=== PATIENT | female | born 1985 | race Native Hawaiian/Other Pacific Islander ===

== ENCOUNTER 2018-08-05 07:25 | Inpatient (IN) | payer MEDICAID, OTHER ==
[2015-07-12 13:36] VITALS: BMI 34.0
[2018-08-05] MEDS ORDERED: Lactated Ringer's 1,000 ML IV ONE (08:50)
[2018-08-05] MEDS ORDERED: Sodium Citrate/Citric Acid 15 ml Sol PO ONE (08:50)
[2018-08-05] MEDS ORDERED: cefOXitin IV 2 gm in Dextrose 2 GM/50 ML BAG IVPB ONE ×2 (08:50→10:33)
--- NOTE | 2018-08-05 09:01 | CP.PCM.HP ---
History of Present Illness - History of Present Illness History of Present Illness: Hank Burciaga DO, PGY-1 Dictating Machine Typist Admission History and Physical for Dr. Sandoval Ms. Martínez is a 33 year old female who presents for scheduled caesarean delivery. She states she is having mild abdominal pain with intermittent contractions. She admits to a hx of prior c/s which was completed due to prolonged labor. She states she has had an uneventful and followed up with [facility] regularly for pre-adebayo care. She states she has been taking a PNV throughout . She offers no additional complaints at this time and denies fever/chills, CP, SOB, cough, nausea/vomiting, [place], changes in vision, or changes in urination. PMH: none PSH: prior c/s x 1 Allergies: NKA Hospitalizations: c/s x 1 Home meds: PNV only Fam Hx: reviewed, non-contributory Soc Hx: denies tobacco, alcohol, or drug use including through . She is monogamous with her and has a good support system at home. Present on Admission - Present on Admission Any Indicators Present on Admission: No History of DVT/PE: No History of Uncontrolled Diabetes: No Urinary Catheter: No Decubitus Ulcer Present: No Review of Systems - Constitutional Constitutional: absent: Chills, Fever - EENT Eyes: absent: Change in Vision - Cardiovascular Cardiovascular: absent: Chest Pain, Diaphoresis, Dyspnea, Lightheadedness, Palpitations - Respiratory Respiratory: absent: Cough, Dyspnea - Gastrointestinal Gastrointestinal: absent: Abdominal Pain, Nausea, Vomiting - Genitourinary Genitourinary: absent: Change in Urinary Stream - Reproductive: Female Reproductive:Female: Other () - Menstruation Menstruation: Other () - Musculoskeletal Musculoskeletal: absent: Abnormal Gait, Atrophy Past Patient History - Past Social History Smoking Status: Never Smoked - PSYCHIATRIC Hx Substance Use: No - SURGICAL HISTORY Hx Surgeries: No Meds Allergies/Adverse Reactions: Allergies Allergy/AdvReac Type Severity Reaction Status Date / Time No Known Allergies Allergy Verified 07/09/15 09:40 Physical Exam - Constitutional Appears: Non-toxic, No Acute Distress - Head Exam Head Exam: ATRAUMATIC, NORMOCEPHALIC - Eye Exam Eye Exam: EOMI, Normal appearance, PERRL - ENT Exam ENT Exam: Mucous Membranes Moist - Neck Exam Neck exam: Positive for: Full Rom, Normal Inspection - Respiratory Exam Respiratory Exam: Clear to Auscultation Bilateral, NORMAL BREATHING PATTERN. absent: Rales, Rhonchi, Wheezes - Cardiovascular Exam Cardiovascular Exam: REGULAR RHYTHM, RRR, +S1, +S2. absent: Diastolic murmur, Gallop, Rubs, Systolic Murmur - GI/Abdominal Exam Additional comments: changes c/w full term - Extremities Exam Extremities exam: Positive for: normal inspection. Negative for: pedal edema - Back Exam Back exam: FULL ROM, NORMAL INSPECTION - Neurological Exam Neurological exam: Alert, Oriented x3 - Psychiatric Exam Psychiatric exam: Normal Affect, Normal Mood - Skin Skin Exam: Dry, Intact, Warm Assessment & Plan - Assessment and Plan (Free Text) Assessment: 33 yo F with no significant PMH is admitted for elective caesarean delivery. Plan: Caesarean section planned for today at 1000 Pre-operative cefoxitin 2 mg IVPB x 1 dose Pre-operative boluses of LR 1 L x 2 Routine pre-operative pre-adebayo labs NPO until after c/s Pepcid 20 mg IVPB x 1 Sodium citrate 30 mg soln x 1 Case and plan reviewed and discussed with my attending Dr. Jaime Burciaga, DO IM Resident PGY-1
[2018-08-05] MEDS ORDERED: Sodium Citrate/Citric Acid 15 ml Sol ONE ×2 (10:34→10:57)
[2018-08-05] MEDS ORDERED: Oxytocin 20 units in LR 2,000 ML IV ONE (10:34)
[2018-08-05 11:07] LABS: SQUAMOUS EPITHIAL 37 /hpf (0-5); URINE BACTERIA FEW (<OCC); URINE BILIRUBIN NEGATIVE (NEGATIVE); URINE BLOOD NEGATIVE (NEGATIVE); URINE CLARITY Hazy (Clear); URINE COLOR Amber (YELLOW); URINE GLUCOSE (UA) NORMAL (Normal); URINE LEUKOCYTE ESTERASE 3+ Leu/uL (Negative); URINE PROTEIN 1+ mg/dL (NEGATIVE); URINE UROBILINOGEN NORMAL mg/dL (0.2-1.0)
[2018-08-05 11:10] LABS: HEMOGLOBIN 13.1 g/dL (11.0-16.0); MONO # 0.4 K/uL (0.0-0.8); NRBC % 0.1 % (0.0-2.0)
[2018-08-05 11:13] LABS: ALB/GLOB RATIO 1.1 (1.0-2.1); ALBUMIN 3.5 g/dL (3.5-5.0); ALT/SGPT 28 U/L (9-52); AST/SGOT 24 U/L (14-36); BLOOD UREA NITROGEN 8 mg/dL (7-17); CALCIUM 8.7 mg/dl (8.6-10.4); GFR NON-AFRICAN AMERICAN > 60
[2018-08-05 11:15] LABS: BASO % 0.6 % (0.0-2.0); EOS # 0.3 K/uL (0.0-0.7); EOS % 3.8 % (0.0-4.0); LYMPH # 1.7 K/uL (1.0-4.3); LYMPH % 23.4 % (20.0-40.0); MEAN CORPUSCULAR HEMOGLOBIN 29.9 pg (27.0-31.0); MEAN CORPUSCULAR HGB CONC 33.3 g/dL (33.0-37.0); MEAN PLATELET VOLUME 8.6 fL (7.2-11.7); MONO % 5.2 % (0.0-10.0); NEUT # 4.7 K/uL (1.8-7.0); RBC 4.37 Mil/uL (3.80-5.20); RED CELL DISTRIBUTION WIDTH 16.8 % (11.5-14.5); WHITE BLOOD COUNT 7.1 K/uL (4.8-10.8)
[2018-08-05] MEDS ORDERED: Bupivacaine HCl 15 mg/2 ml Spinal Inj ONE (11:41)
[2018-08-05] MEDS ORDERED: Morphine 1 mg/ml preservative-free Inj(Duramorph) ONE (11:42)
[2018-08-05] MEDS ORDERED: EPINEPHrine 1 mg/ml (1:1000) Inj ONE (12:33)
[2018-08-05] MEDS ORDERED: Oxytocin 10 Units/ml Inj ONE (13:31)
[2018-08-05] MEDS ORDERED: DiphenhydrAMINE 50 mg/ml Inj IVP PRN (13:49)
[2018-08-05] MEDS ORDERED: Naloxone 0.4 mg/ml Inj (Adult) IVP PRN (13:49)
--- NOTE | 2018-08-05 15:30 | OBDS ---
DELIVERY PERSONNEL Delivery Doctor: Migdalia Sandoval DO Scrub Nurse: Mely Killian Metallurgical Engineering Technician: Oxana Campbell RN Anesthesiologist: Chad Kim MD Resident: Lore Weller MATERNAL INFORMATION Delivery Anesthesia: Spinal Medications in Delivery: oxytocin Placenta Cultured: Yes Maternal Complications: None RN Comments: Delivery of a life Baby Girl 9, 9 Provider Comments: Elective Repeat LTC C/S with delivery of a viable female from [facility]. Apgars 9_9 at 1 _ 5 mins and BW 7 lbs and 15oz. [facility] also performed Cord blood and cord pH obtained and sent, as well as Placenta sent to Pathology. EBl 700 mls Pt tolerated the procedure well and remained in LDR in S_S condition LABOR SUMMARY EDC: 08/11/2018 00:00 No. Babies in Womb: 0 LABOR INFORMATION Reason for Induction: Not Applicable Group B Beta Strep: Negative Steroids Given: None Reason Steroids Not Administered: Not Applicable STAGES OF LABOR Stage 3 hrs: 0 Stage 3 min: 1 VAGINAL DELIVERY Episiotomy: None Laceration Extension: N/A Laceration Type: None Other Laceration: n/a Laceration Repair: Not Applicable Initial Vag Sponge Count: 25 Initial Vag Sharps Count: 11 CSECTION DELIVERY Primary Indication: Repeat Elective CSection Urgency: Elective CSection Incidence: Repeat Labor: N/A Elective: N/A CSection Incision: Lower Uterine Transverse BABY A INFORMATION Infant Delivery Date/Time: 08/05/2018 12:15 Method of Delivery: Born in Route : No : N/A Forceps: N/A Vacuum Extraction: Successful Shoulder Dystocia : No ASSISTED DELIVERY BABY A Indication for Assisted Delivery: Head delivery Catheter Prior to Procedure: Yes Station Vacuum/Forcep Apply: head Vacuum Number of Pulls: 1 Vacuum Number of PopOffs: 0 Vacuum Maximum Pressure Obtained: 40 Vacuum Vest Backer: Rickey Surgical Type of Forceps: none SHOULDER DYSTOCIA BABY A Infant Delivery Date/Time: 08/05/2018 12:15 PRESENTATION/POSITION BABY A Presentation: Cephalic Cephalic Presentation: Vertex Vertex Position: Left Occipital Posterior PLACENTA INFORMATION BABY A Placenta Delivery Time : 08/05/2018 12:16 Placenta Method of Delivery: Manual Removal Placenta Status: Delivered SCORES BABY A Heart Rate 1 min: >100 bpm Resp Effort 1 min: Good Cry Reflex Irritability 1 min: Cough or Sneeze or Pulls Away Muscle Tone 1 min: Active Motion Color 1 min: Body [place], Extremities Blue SCORE 1 MIN: 9 Heart Rate 5 min: >100 bpm Resp Effort 5 min: Good Cry Reflex Irritability 5 min: Cough or Sneeze or Pulls Away Muscle Tone 5 min: Active Motion Color 5 min: Body [place], Extremities Blue SCORE 5 MIN: 9 INFANT INFORMATION BABY A Gestational Age at Delivery: 39.1 Gestational Status: Term Outcome : Liveborn Infant Condition : Stable Infant Sex: Female IDENTIFICATION/MEDS BABY A ID Band Number: [id number] Sensor Applied: Yes Sensor Number: [id number] WEIGHT/LENGTH BABY A Birthweight (gms): 3610 Infant Weight (lb): 7 Infant Weight (oz): 15 Length Inches: 19.50 Infant Length cms: 49.5 CORD INFORMATION BABY A No. Cord Vessels: 3 Nuchal Cord : N/A Cord Blood Taken: Yes ASSESSMENT BABY A Complications: None Physical Findings at Delivery: Within Normal Limits Infant Respirations: Appears Normal Superintendent Greens/ALS Called : No Infant Care By: bella Transferred To: [facility]
[2018-08-05] MEDS ORDERED: Sodium Chloride 0.9% 500 ML IV ONE (16:46)
--- NOTE | 2018-08-06 07:08 | OBHP ---
Datetime: 08/05/2018 10:13 IP Adm Impression: Term, intrauterine IP Admit Plan: Admit to unit; Initiate Section protocol Admit Comment, IP Provider: Patient is a 33 year old at 39w1d PRISCILA 08/11/18 who presents for scheduled repeat . Patient is doing well, reports having contractions q15min. Endorses +FM, denies VB, LOF. Patient follows with [facility] for care. Denies headaches, dizziness, cp, palpi tations, sob, urinary symptoms, changes in bowel habits. 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 Hx: LMP 11/04/17 Denies hx of fibroids, ovarian cysts, STDs Allergies: NKDA Medication: PNV, Iron Medical History: Denies Surgical History: C/S x 1 Social History: Denies alcohol, tobacco, drug use; She is monogamous with her and has a go od support system at home Family History: Denies PE: See above A/P: Patient is a 33 year old at 39w1d who presents for elective repeat C/S -Stable afebrile -NST Reactive -Admission labs: CBC, CMP, T+S, UA, RPR, HIV -Cefoxitin 2gm, Bicitra and Pepcid preoperatively -Diet: NPO -Anesthesia notified -Plan discussed with Dr Sandoval FHR - Baseline A Provider: 140 Contraction Comments Provider: q6-7min Comments, ACOG Physical Exam: VSS Gen: AAOx3 Abd: Soft, gravid Ext: No clubbing, cyanosis, edema; no calf tenderness EFM: 140, moderate variability, +accels, no decels TOCO: Q6-7min IP Hx Assessment: The History has been Reviewed and is Current EGA AdmitDate IP: 39.1 Vital Signs Provider: Reviewed; Within Normal Limits IP Chief Complaint: Scheduled Section NICHD Variability Prov Fetus A: Moderate 6-25bpm NICHD Accel Fetus A IP Provider: [id number] NICHD Decel Fetus A IP Provider: None
--- NOTE | 2018-08-06 07:11 | OBADHP ---
Datetime: 08/05/2018 10:13 Admit Comment, IP Provider: Patient is a 33 year old at 39w1d PRISCILA 08/11/18 who presents for scheduled repeat . Patient is doing well, reports having contractions q15min. Endorses +FM, denies VB, LOF. Patient follows with [facility] for care. Denies headaches, dizziness, cp, palpi tations, sob, urinary symptoms, changes in bowel habits. History: denies OB Hx: 1. 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 Hx: LMP 11/04/17 Denies hx of fibroids, ovarian cysts, STDs Allergies: NKDA Medication: PNV, Iron Medical History: Denies Surgical History: C/S x 1 Social History: Denies alcohol, tobacco, drug use; She is monogamous with her and has a go od support system at home Family History: Denies PE: See above A/P: Patient is a 33 year old at 39w1d who presents for elective repeat C/S -Stable afebrile -NST Reactive -Admit and prep for C/S -Admission labs: CBC, CMP, T+S, UA, RPR, HIV -Cefoxitin 2gm, Bicitra and Pepcid preoperatively -Diet: NPO -Anesthesia notified -Plan discussed with Dr Sandoval FHR - Baseline A Provider: 140 Contraction Comments Provider: q6-7min Comments, ACOG Physical Exam: VSS Gen: AAOx3 Abd: Soft, gravid Ext: No clubbing, cyanosis, edema; no calf tenderness EFM: 140, moderate variability, +accels, no decels TOCO: Q6-7min IP Hx Assessment: The History has been Reviewed and is Current Vital Signs Provider: Reviewed; Within Normal Limits IP Chief Complaint: Scheduled Section NICHD Variability Prov Fetus A: Moderate 6-25bpm NICHD Accel Fetus A IP Provider: [id number] NICHD Decel Fetus A IP Provider: None EGA AdmitDate IP: 39.1 IP Adm Impression: Term, intrauterine IP Admit Plan: Admit to unit; Initiate Section protocol
[2018-08-06 07:52] LABS: HEMOGLOBIN 11.6 g/dL (11.0-16.0); MEAN CELL VOLUME 89.2 fL (81.0-99.0); MEAN CORPUSCULAR HEMOGLOBIN 30.3 pg (27.0-31.0); MEAN PLATELET VOLUME 8.8 fL (7.2-11.7); RBC 3.83 Mil/uL (3.80-5.20); RED CELL DISTRIBUTION WIDTH 17.1 % (11.5-14.5)
[2018-08-06 07:53] LABS: WHITE BLOOD COUNT 10.8 K/uL (4.8-10.8)
[2018-08-06] MEDS ORDERED: Enoxaparin 40 mg Syringe SC SCH (10:00)
[2018-08-06] MEDS: Prenatal Multivit/Folic Acid/Iron Tab PO SCH (10:25)
--- NOTE | 2018-08-06 16:26 | OBPPN ---
Datetime: 08/06/2018 12:02 PP Pain Prov: Within normal limits PP Nausea Prov: Denies PP Flatus Prov: No PP BM Prov: No PP Breasts Prov: Not Done PP Heart Prov: Normal PP Lungs Prov: Normal PP Abdomen/Uterus Prov: Normal PP Lochia Prov: Normal PP Vulva/Perineum Prov: Normal PP CVA Tenderness Prov: Normal PP Extremities Prov: Normal PP C/S Incision Prov: Normal PP Progress Prov: Normal PP Comments Phys Exam Prov: Fundus firm and below umbilicus Dressing clean, dry and intact PP Impression Prov: Normal progression PP Plan Prov: Continue present management PP Progress Note Prov: Pt seen and examined POD # 1 No c/o's and doing well Eating and ambulating in room AB+ PP H_H 11.6/34.1 Stable and Satisfactory Condition and Recovery Advance care Encourage po water intake and IP PP Procedures: None Vital Signs Provider PP: Reviewed; Within Normal Limits
[2018-08-06] MEDS: Oxycodone/Acetaminophen 5/325 mg Tab PO PRN (21:22)
[2018-08-07] MEDS: Oxycodone/Acetaminophen 5/325 mg Tab PO PRN ×4 (03:15→22:52)
[2018-08-07] MEDS: Prenatal Multivit/Folic Acid/Iron Tab PO SCH (09:42)
[2018-08-07] MEDS ORDERED: Aluminum Hydroxide/Magnesium Hydroxide Susp (30 mL) PO PRN (10:09)
[2018-08-07] MEDS ORDERED: POLYETHYLENE GLYCOL 3350 17 GM/Dose PACKET PO ONE (10:10)
[2018-08-07] MEDS ORDERED: Simethicone 80 mg Chewtab PO PRN (10:46)
[2018-08-07] MEDS ORDERED: Magnesium Hydroxide Susp 30 ml UD PO ONE ×3 (11:00→14:00)
[2018-08-07] MEDS: Enoxaparin 60 mg Syringe SC SCH (12:05)
[2018-08-07] MEDS: Simethicone 80 mg Chewtab PO SCH ×3 (13:53→22:49)
--- NOTE | 2018-08-07 18:09 | OBPPN ---
Datetime: 08/07/2018 11:31 PP Pain Prov: Within normal limits PP Nausea Prov: Denies PP Flatus Prov: Yes PP BM Prov: No PP Breasts Prov: Not Done PP Heart Prov: Normal PP Lungs Prov: Normal PP Abdomen/Uterus Prov: Normal PP Lochia Prov: Normal PP Vulva/Perineum Prov: Not Done PP CVA Tenderness Prov: Normal PP Extremities Prov: Normal PP C/S Incision Prov: Normal PP Progress Prov: Normal PP Comments Phys Exam Prov: Abdomen: Morbidly obese. Soft. Nondistended. Incision with hunter - darshana an, dry and intact. Mild lochia rubra extremities: no calf tenderness All other systems reviewed and are negative PP Impression Prov: Normal progression; Pain PP Plan Prov: Continue present management; consult PP Progress Note Prov: Hank Burciaga DO, PGY-1 Buildings And Grounds Superintendent Progress Note for Dr. Niño Ms. Martínez was seen and examined at bedside this AM. She is POD 2 s/p caesarean delivery. She repo rts continued lower and mid-abdominal pains which she describes as gas-type burning pains. She states these have not improved with colace and senekot. She states she still feels constipated and has not had a BM yet. She also admits to b/l LE swelling which she states has improved but denies calf pain o r reduced ROM. She is ambulating without difficulty and denies nausea/vomiting, vaginal bleeding, or discharge. She is currently bottle and breast feeding. Attending Note: Patient seen and evaluated by me with the resident at approximately 1220 hours. I agree withthe ab ov.e Patiwill thas not ambulated outside her room; encouraged to do so. - POD#1 H/H 13.1/39.3 -> 11.6/34.1. Rh (+) Assessment: POD#2, 33 y.o. P2, S/P repeat C/S. Afebrile, vital signs stable. Slowly returning GI function - encouraged to ambulate more. Returning function. H/H stable. Patient is clinically stab le. Plan: 1) Continue post care 2) Anticipate discharge home 08/08/18 IP PP Procedures: None Vital Signs Provider PP: Reviewed; Within Normal Limits
[2018-08-08 08:48] VITALS: BP 117/76; PULSE 88; TEMP 97.8
[2018-08-08] MEDS: Enoxaparin 60 mg Syringe SC SCH (09:25)
[2018-08-08] MEDS: Prenatal Multivit/Folic Acid/Iron Tab PO SCH (09:26)
[2018-08-08] MEDS: Simethicone 80 mg Chewtab PO SCH (09:26)
[2018-08-08] MEDS ORDERED: IBUPROFEN 600 MG PO PRN (09:45)
--- NOTE | 2018-08-08 10:28 | OBDCSUM ---
Datetime: 08/08/2018 10:25 Discharged to, Provider: Home Disch Instr Activity: Normal activity; May be up to bathroom; May be up for meals; May Shower Disch Instr Diet: Regular Discharge Instructions, Provider: Routine instructions given Discharge Diagnosis, Provider: Term Delivered Discharge Time: 08/08/2018 10:25 Follow up in weeks, Provider: 1 week Disch Activity Restrictions: No exercising; No lifting; No driving Discharge Comment, Provider: NO COMPLAINTS. TOLERATING PO DIET, DENIES N/V, PAIN 01/25 CONTROLLED W M OTRIN. +FLATUS VITALS: STABLE HGB: 11.6 33 S/P RCS POD # 3 - D/C HOME
[2018-08-08 20:32] VITALS: RESP 18; O2SAT 98
--- NOTE | 2018-08-10 07:53 | OP ---
PROCEDURE DATE: 08/05/2018 PREOPERATIVE DIAGNOSES: 1. 2, para 1 at 39.1 week. 2. Previous section x1. 3. Morbid obesity. 4. Requesting an elective repeat section. POSTOPERATIVE DIAGNOSES: 1. 2, para 1 at 39.1 week. 2. Previous section x1. 3. Morbid obesity. 4. Requesting an elective repeat section. 5. Multiple pelvic adhesions. 6. Very thin lower uterine segment noted. PROCEDURES: 1. Elective repeat low transverse cervical section with delivery of viable female from the NIKKIE position. Apgars were 9 and 9 at 1 and 5 minutes respectively and a weight of 7 pounds and 15 ounces. 2. Significant lysis of adhesions. SURGEON: Georgina Sandoval DO. WINDOWS SOFTWARE ENGINEER: Aden Skinner MD. ANESTHESIOLOGIST: Dk Kim MD INDICATION FOR SURGERY: History of a previous section x1. at term and significant maternal obesity. FINDINGS: As noted above, the lower uterine segment was noted to be very, very thin. Bilateral tubes and ovaries appear within normal limits, and there was no other gross pathology noted. SPECIMEN: The cord blood and cord pH were obtained and sent. The placenta was also sent to pathology. ESTIMATED BLOOD LOSS: 700 mL. COMPLICATIONS: In relation to maternal obesity, a very large abdominal fat pad as well as the dense pelvic adhesions. PREOPERATIVE NOTE: The procedure, the risks and the possible complications were fully reviewed with the patient to include but not exclusively hemorrhage, infection or injury to bowel, bladder, bilateral tubes and ovaries, internal blood vessels or any other internal organs. The patient verbalized understanding and requested to proceed and signed the consent. DESCRIPTION OF PROCEDURE: The patient was taken to the operating room, she was given a spinal form of anesthesia and she was sterilely prepped and draped in the usual manner for the above-named procedure. The Orellana catheter was inserted. A time-out was then carried out as adequate and as indicated, and after ascertaining an adequate level of anesthesia, the procedure was initiated. The knife was utilized to make a low transverse skin incision in the suprapubic area following the previous scar and utilizing the Pfannenstiel technique, the abdomen was entered. Lysis of adhesions was required in order to gain access to the abdominal cavity, and the bladder flap was developed with difficulty and placed underneath the Trent blade. The second knife was then utilized to make a low transverse uterine incision in the lower uterine segment which was very thin, and the membranes were ruptured with return of clear fluid and the was then delivered from the NIKKIE position. The bulb syringe was utilized to suction the naso and the oropharynx upon delivery of the head and upon completion of the delivery, which was carried out without difficulty. The cord was doubly clamped and transected, and the infant was passed to the protection manager in attendance for further inspection. The cord blood and the cord pH were obtained and sent and the placenta was spontaneously delivered and sent to Pathology. The uterus was exteriorized through the abdominal incision after some more lysis of adhesions in order to allow this. The endometrial cavity was cleansed with a moist lap and the uterine incision was then closed utilizing a PDS suture in a full-thickness manner with an adequate closure and adequate hemostasis. Bilateral tubes and ovaries were noted to be within normal limits, and after cleaning the cul-de-sac of blood clots, the uterus was repositioned in the abdominal cavity. Bilateral gutters were also cleansed, and after ascertaining adequate hemostasis of the uterine incision, we proceeded to close the abdomen in layers. The rectus muscle was reapproximated in the midline with 3 interrupted sutures of 2-0 Vicryl and incorporating the peritoneum. The fascia was closed with 0 PDS and the skin was closed with the hunter. Sterile dressing was applied, and after evacuating the vagina of blood clots, the procedure was terminated. All instruments and sponges were accounted for x3. The patient and the tolerated the procedure well and they both left the operating room in stable and satisfactory condition. Georgina Sandoval DO
== END 2018-08-08 15:00 | disposition home or self-care (01) | DRG 371 ==
LOC: C.EROB 07:25 → C.4D 09:01 → C.4M 17:00
PROVIDERS: ADMIT Obstetrics & Gynecology; ATTEND Obstetrics & Gynecology
PROC: 10D00Z1 Extraction of Products of Conception, Low, Open Approach (ICD-10-PCS; principal; 2018-08-05)
DX: O34.211 Maternal care for low transverse scar from previous cesarean delivery (principal); O99.214 Obesity complicating childbirth; Z3A.39 39 weeks gestation of pregnancy; Z37.0 Single live birth; N73.6 Female pelvic peritoneal adhesions (postinfective); K59.00 Constipation, unspecified